=== PATIENT | male | born 1960 | race African-American/Black ===

== ENCOUNTER → 2016-07-02 | Outpatient (CLI) | payer MEDICAID ==
[~2016-07-02] MED LIST: CENTRUM1 TAB PO; DRISDOL50000 IU PO; ENBREL50 MG/ML SC; FOLIC ACID1 MG PO; HCTZ/TRIAMTEREN1 CAP PO; LORTAB 5/500 501 TAB PO; LOTREL 5 MG-401 CAP PO; NOVOLIN 70/30 710 ML SC; OSCAL 500MG. T500 MG PO; SULFAMETHOXAZOL1 TA6 PO; TOPROL XL100 MG PO
[2016-07-02 12:13] LABS: HEMOGLOBIN 13.3 g/dL (14.1-18.0); LYMPH # 2.1 K/mm3 (0.7-4.5); LYMPH % 22.4 % (10-50)
== END ==
LOC: LAB 12:02
PROVIDERS: Thoracic Surgery (Cardiothoracic Vascular Surgery)
DX: I25.10 Atherosclerotic heart disease of native coronary artery without angina pectoris (principal)